=== PATIENT | female | born 1970 | race Caucasian/White ===

== ENCOUNTER 2022-07-15 12:39 | Emergency (ER) | payer OTHER, SELFPAY ==
[2022-07-15] VITALS (13 sets, daily range): BP systolic 117–170; BP diastolic 79–91; PULSE 72–100; RESP 12–18; TEMP 36.7–36.9; O2SAT 95–100
--- NOTE | ~2022-07-15 | XR_ITS ---
EXAMINATION: XR chest 1V portable Exam Date/Time: 07/15/2022 15:08 AIR TESTER HISTORY: HX HYPERTENSION Comparison: None available. RESULT: Lines, tubes, and devices: None. Lungs and pleura: Clear. Cardiomediastinal silhouette: Unremarkable. Other: No acute osseous or upper abdominal finding. IMPRESSION: No acute cardiopulmonary process. Reviewed, dictated and finalized at location [facility]
--- NOTE | 2022-07-15 14:09 | ED.GENADULT ---
HPI - General Adult General Chief complaint: Recheck/Abnormal Lab/Rx Stated complaint: face flushed, foggy Time Seen by Provider: 07/15/22 13:50 Source: patient and family History of Present Illness HPI narrative: 51 years old white female came to the ED by ambulance feeling weird, intermittent hot and cold feeling, started 9:30 AM today at rest at work. Patient reports that her face been flushed in the last couple days, last menstrual period 5 to 6 months ago, she denies any stress or depression. Smoke or use marijuana, drinks occasionally, does not take medicine at home. Patient found that her blood pressure 150/95 prior to arrival to the emergency room. She denies any shortness of breath, chest pain, headache, nausea, vomiting, fever, chills, respiratory symptoms. Related Data Allergies Allergy/AdvReac Type Severity Reaction Status Date / Time No Known Allergies Allergy Verified 07/15/22 15:58 Review of Systems Review of Systems: All systems reviewed & are unremarkable except as noted in HPI and below Exam Narrative: General appearance: Well-developed, well-nourished Skin: Normal color Head: Normocephalic, nontraumatic Eyes: Clear conjunctiva ENT: Oropharynx normal, ears normal, nose normal Neck: Supple, nontender Chest and respiratory: Airway patent, no respiratory distress, no accessory muscle use Heart: Regular rate/rhythm Abdomen: Soft, nontender, no organomegaly, quiet bowel sounds Vascular: Normal peripheral pulses, normal capillary refill. Musculoskeletal: Normal range of motion, nontender back Neurologic: Alert and oriented ?3, CHANGE ANALYST is normal as tested, no gross motor deficit Course Course Emergency Course: Patient blood pressure dropped to 117/81 even prior to the Ativan orally. Work-up did not show any significant finding to explain patient condition, my concern is anxiety, menopause or both. Patient antidepression medication. Reevaluation(s) Reevaluation #1: Feeling great and ready to go home Date: 07/15/22 Time: 16:43 Vital Signs Vital signs: Vital Signs Temperature 36.9 C 07/15/22 12:41 Pulse Rate 100 07/15/22 12:41 Respiratory Rate 18 07/15/22 12:41 Blood Pressure 170/91 H 07/15/22 12:41 Pulse Oximetry 100 07/15/22 12:41 Temperature 36.8 C 07/15/22 16:03 Pulse Rate 81 07/15/22 16:03 Respiratory Rate 16 07/15/22 16:03 Blood Pressure 117/81 07/15/22 16:03 Pulse Oximetry 99 07/15/22 16:03 Medical Decision Making Vital Signs Vital Signs: Vital Signs Temperature 36.9 C 07/15/22 12:41 Pulse Rate 100 07/15/22 12:41 Respiratory Rate 18 07/15/22 12:41 Blood Pressure 170/91 H 07/15/22 12:41 Pulse Oximetry 100 07/15/22 12:41 Temperature 36.8 C 07/15/22 16:03 Pulse Rate 81 07/15/22 16:03 Respiratory Rate 16 07/15/22 16:03 Blood Pressure 117/81 07/15/22 16:03 Pulse Oximetry 99 07/15/22 16:03 Lab Data Result diagrams: 07/15/22 13:33 07/15/22 13:33 Labs: Lab Results 07/15/22 07/15/22 07/15/22 Range/Units 13:33 13:33 15:38 WBC 11.1 H (4.5-10.0) K/mm3 RBC 4.32 (4.2-5.4) M/mm3 Hgb 13.7 (12.0-15.0) g/dL Hct 41.2 (37.0-47.0) % MCV 95.4 (80-100) fl MCH 31.7 (26-34) pg MCHC 33.3 (32-36) g/dl RDW 12.6 (11.5-14.5) % Plt Count 350 (150-375) k/mm3 MPV 10.3 (7.4-10.4) fl Immature Gran % (Auto) 0.2 (0-0.5) % Neut % (Auto) 59.5 (45.5-73.1) % Lymph % (Auto) 31.9 (18.3-44.2) % [place] % (Auto) 6.6 (2.6-8.5) % Eos % (Auto) 1.4 (0-4.4) % Baso % (Auto) 0.4 (0.2-1.2) % Lymph # (Auto) 3.53 H (0.9-3.2) K/mm3 [place] # (Auto) 0.7 H (0.
--- NOTE | 2022-07-15 15:04 | ECG_ITS ---
Measurements Intervals [place] Rate: 73 P: 61 NV: 156 QRS: -1 QRSD: 85 T: 72 QT: 399 QTc: 442 Interpretive Statements SINUS RHYTHM POSSIBLE LEFT ATRIAL ENLARGEMENT INCOMPLETE RIGHT BUNDLE BRANCH BLOCK DELAYED PRECORDIAL R/S TRANSITION BORDERLINE ECG NO PREVIOUS ECG AVAILABLE FOR COMPARISON Electronically Signed On 07-15-2022 16:42:58 TELEVISION SPECIALIST by Chong Chaves D.O.
[2022-07-15 15:47] LABS: Basophils Percent Auto 0.4 % (0.2-1.2); Eosinophils Absolute Auto 0.2 K/mm3 (0-0.3); Eosinophils Percent Auto 1.4 % (0-4.4); Hematocrit 41.2 % (37.0-47.0); Hemoglobin 13.7 g/dL (12.0-15.0); Immature Granulocyte Absolute 0.02 K/mm3 (0.00-0.031); Immature Granulocyte Percent A 0.2 % (0-0.5); Lymphocytes Absolute Auto 3.53 K/mm3 (0.9-3.2); Lymphocytes Percent Auto 31.9 % (18.3-44.2); Mean Corpuscular HGB Conc 33.3 g/dl (32-36); Mean Corpuscular Hemoglobin 31.7 pg (26-34); Mean Corpuscular Volume 95.4 fl (80-100); Mean Platelet Volume 10.3 fl (7.4-10.4); Monocytes Absolute Auto 0.7 K/mm3 (0.1-0.6); Monocytes Percent Auto 6.6 % (2.6-8.5); Neutrophils Absolute Auto 6.6 K/mm3 (1.3-6.7); Neutrophils Percent Auto 59.5 % (45.5-73.1); Platelet Count Result 350 k/mm3 (150-375); Red Blood Count 4.32 M/mm3 (4.2-5.4); Red Cell Distribution Width 12.6 % (11.5-14.5); White Blood Count 11.1 K/mm3 (4.5-10.0)
[2022-07-15 15:47] LABS: Appearance Urine Clear (Clear); Bilirubin Urine Negative (Negative); Blood Urine Negative (Negative); Color Urine Yellow (Yellow); Glucose Urine UA Negative (Negative); Ketones Urine Negative (Negative); Leukocyte Esterase Ur Negative LEU/UL (Negative); Nitrate Urine Negative (Negative); Protein Urine Negative (Negative); Specific Grav Ur 1.025 (1.001-1.035); Urobilinogen Urine 0.2 mg/dL (<2.0); pH Urine 5.5 (5.0-9.0)
[2022-07-15 15:56] LABS: Alanine Aminotransferase 24 U/L (6-35); Albumin Level 4.7 g/dL (3.5-5.1); Alkaline Phosphatase 96 U/L (38-126); Anion Gap 16 mmol/L (8-16); Aspartate Amino Transferase 28 U/L (14-36); Bilirubin,Total 0.5 mg/dL (0.2-1.3); Blood Urea Nitrogen 16 mg/dL (7-17); Calcium 9.2 mg/dL (8.4-10.2); Carbon Dioxide 25 mmol/L (22-30); Chloride 100 mmol/L (98-107); Estimated CRCL calculation 87 ml/min; Estimated Glomerular Filt Rate > 60; Glucose 96 mg/dL (65-110); Sodium 141 mmol/L (137-145)
[2022-07-15] MEDS: LORazepam (*CRX) 0.5 MG TABLET 1 MG PO (16:02)
[2022-07-15 16:08] LABS: Troponin I < 0.012 ng/mL (0.000-0.034)
[2022-07-15 16:10] LABS: Mucus Urine Rare /lpf; RBC Urine 0-2 /hpf (0-2); Squamous Epithelial Cell Urine Moderate /hpf (Few); WBC Urine 0-3 /hpf
[2022-07-15 16:11] LABS: Add Urine Microscopic? NO
== END 2022-07-15 17:04 | disposition home or self-care (01) ==
PROVIDERS: Emergency Provider Emergency Medicine
DX: R23.2 Flushing (principal); F41.9 Anxiety disorder, unspecified; N95.1 Menopausal and female climacteric states
CPT/HCPCS: 36415; 71045; 80053; 81003; 81025; 84443; 84484; 85025; 93005; 99284; A9270